=== PATIENT | male | born 1995 | race Caucasian/White ===

== ENCOUNTER → 2020-06-02 11:00 | Outpatient (BNVA) | payer BC, SELFPAY | PROVIDERS: Visit Provider Nurse Practitioner Family | DX: Z11.59 Encounter for screening for other viral diseases (principal); J98.8 Other specified respiratory disorders; B97.89 Other viral agents as the cause of diseases classified elsewhere; Z68.22 Body mass index [BMI] 22.0-22.9, adult; F17.210 Nicotine dependence, cigarettes, uncomplicated | CPT/HCPCS: 87635 ==

== ENCOUNTER → 2020-08-04 10:00 | Outpatient (BNVA) | payer BC, SELFPAY | PROVIDERS: Visit Provider Nurse Practitioner Family | DX: S46.212A Strain of muscle, fascia and tendon of other parts of biceps, left arm, initial encounter (principal); S46.912A Strain of unspecified muscle, fascia and tendon at shoulder and upper arm level, left arm, initial encounter; W19.XXXA Unspecified fall, initial encounter | CPT/HCPCS: 73030 ==

== ENCOUNTER 2020-08-15 15:59 | Outpatient (CLI) | payer OTHER, SELFPAY ==
--- NOTE | 2020-08-15 16:00 | MRR_ITS ---
PROCEDURE INFORMATION: Exam: MR Left Upper Extremity Joint Without Contrast; Shoulder Exam date and time: 08/15/2020 4:56 PM Age: 25 years old Clinical indication: Injury or trauma; Initial encounter; Sprain or strain; Shoulder; Left; Additional info: S46.912a strain of unspecified muscle, fascia and tendon . . . TECHNIQUE: Imaging protocol: MR of the Left upper extremity without contrast. Exam focused on the shoulder. COMPARISON: CR XR shoulder LT min 2V* [id number] 08/04/2020 10:12 AM FINDINGS: Bones and cartilage: Glenohumeral alignment is normal. Articular cartilage is normal. Bone marrow signal intensity is normal. No edema. Type 1 acromion. Joint spaces: No joint effusion. Normal AC joint. Glenoid labrum: The glenoid labrum is normal. Supraspinatus tendon: The supraspinatus tendon is normal. Infraspinatus tendon: The infraspinatus tendon is normal. Subscapularis tendon: The subscapularis tendon is normal. Teres minor tendon: The teres minor tendon is normal. Tendon of biceps brachii: The long head biceps tendon is intact and lies within the intertubercular groove. Glenohumeral ligaments: Unremarkable. Muscles: No muscle atrophy. Soft tissues: Unremarkable. MR/MR shoulder LT wo con* [id number] IMPRESSION: No pathologic findings.
== END 2020-08-15 16:00 | disposition home or self-care (01) ==
LOC: RADSHAW 16:04
PROVIDERS: Visit Provider Nurse Practitioner Family
DX: S46.912A Strain of unspecified muscle, fascia and tendon at shoulder and upper arm level, left arm, initial encounter (principal); X58.XXXA Exposure to other specified factors, initial encounter
CPT/HCPCS: 73221

== ENCOUNTER → 2020-09-23 14:32 | Outpatient (BNVA) | payer OTHER, SELFPAY | PROVIDERS: Visit Provider Nurse Practitioner Family | DX: Z11.59 Encounter for screening for other viral diseases (principal) | CPT/HCPCS: 87635 ==

== ENCOUNTER → 2020-10-15 10:12 | Outpatient (BNVA) | payer BC, SELFPAY | PROVIDERS: Visit Provider Family Medicine | DX: J84.10 Pulmonary fibrosis, unspecified (principal); R05 Cough | CPT/HCPCS: 71046; 87635 ==

== ENCOUNTER → 2021-06-24 11:25 | Outpatient (BNVA) | payer OTHER, SELFPAY | PROVIDERS: Visit Provider Nurse Practitioner Family | DX: K52.9 Noninfective gastroenteritis and colitis, unspecified (principal); Z20.822 Contact with and (suspected) exposure to COVID-19 | CPT/HCPCS: 80053; 80061; 81003; 83036; 84443; 85025; 87635 ==

== ENCOUNTER 2021-07-02 13:54 | Outpatient (CLI) | payer SELFPAY ==
--- NOTE | 2021-07-02 14:01 | CT_ITS ---
WS: [id number] CT ABDOMEN PELVIS TECHNIQUE: Noncontrast CT of the abdomen and pelvis with coronal and sagittal reformatted images. CLINICAL INFORMATION: K40.90 - Unilateral inguinal hernia, without obstruction ... COMPARISON: None. DLP: 717.[address] scans at [facility] use at least one of these dose optimization techniques: automat ed exposure control; mA and/or kV adjustment per patient size (includes targeted exams where dose is matched to clinical indication); or iterative reconstruction. FINDINGS: Fat-containing right inguinal hernia. No entrapped or herniated bowel. Tiny fat-containing umbilical hernia. Lung bases are well aerated. Noncontrast liver is normal. Normal noncontrast gallbladder. Non contrast spleen is normal. Normal adrenal glands. No hydronephrosis in either kidney. Normal caliber abdominal aorta. Urine distended bladder. Normal sigmoid colon. No evidence of small or large bowel obstruction. Cristiana l lumbar spine. CT/CT abdomen pelvis wo con [id number] IMPRESSION: 1. Fat-containing right inguinal hernia. No herniated or incarcerated bowel. 2. Tiny fat-containing umbilical hernia. 3. No other significant findings.
== END 2021-07-02 13:55 | disposition home or self-care (01) ==
LOC: RAD 13:56
PROVIDERS: PCP Nurse Practitioner Family; Visit Provider Family Medicine
DX: K40.90 Unilateral inguinal hernia, without obstruction or gangrene, not specified as recurrent (principal); K42.9 Umbilical hernia without obstruction or gangrene; Z20.822 Contact with and (suspected) exposure to COVID-19
CPT/HCPCS: 74176; 87635

== ENCOUNTER → 2021-07-06 15:22 | Outpatient (BNVA) | payer OTHER, SELFPAY | PROVIDERS: PCP Nurse Practitioner Family; Visit Provider Surgery | DX: K40.90 Unilateral inguinal hernia, without obstruction or gangrene, not specified as recurrent (principal); Z20.822 Contact with and (suspected) exposure to COVID-19 | CPT/HCPCS: 87635 ==

== ENCOUNTER 2021-07-08 11:20 | Day surgery (SDC) | payer OTHER, SELFPAY ==
[2021-07-07 17:10] VITALS: BMI 22.9
[2021-07-08 10:21] VITALS: BP 126/71; PULSE 69; RESP 18; TEMP 36.5; O2SAT 98
[2021-07-08] MEDS: sodium chloride 0.9% 1,000 ML 30 ML IV (10:54)
--- NOTE | 2021-07-08 10:57 | W.PM.OPSFHP ---
Same Day Surgery H&P Indication for Procedure/HPI DATE OF PROCEDURE: July 08, 2021 CHIEF COMPLAINT/INDICATIONFOR SURGICAL PROCEDURE: Right inguinal hernia PREOP DIAGNOSIS: right inguinal hernia PLANNED PROCEDRUE: Operation Date: 07/08/21 11:30 Proposed Procedures p Laparoscopic Inguinal Hernia Repair w/Mesh 22262 K40.90(Not Applicable) - Alverto Melendrez MD This is a 25-year-old male who felt a pop in the right groin 2 weeks ago and subsequently about a week later noticed swelling in the groin. He was seen at our [facility] where the hernia was reduced and a subsequent CT abdomen pelvis the following day showed fat-containing right inguinal hernia. At present he denies any abdominal pain, nausea or vomiting. Denies any constipation or diarrhea. No prior hernia repairs in the past. He states that the hernia protrudes when he coughs and reduces on laying down ROS 10 system review was negative Medications/Allergies* None Home Medications Medication Instructions Recorded Confirmed Type No Known Home Medications 07/07/21 07/07/21 History Allergies/Adverse Reactions Allergy/AdvReac Type Severity Reaction Status Date / Time No Known Allergies Allergy Verified 07/02/21 14:22 Current Medications: Generic Name Dose Route Start Last Admin Trade Name Freq PRN Reason Stop Dose Admin Sodium Chloride 1,000 mls @ 30 mls/hr 07/08/21 10:30 07/08/21 10:54 Sodium Chloride 0.9% IV 07/09/21 10:29 30 mls/hr .Q24H BRITTANIE Administration Pertinent History/Comorbid Conditions* Medical History (Updated 07/01/21 @ 17:23 by David Garcia MD) Biceps muscle strain Cough Dental abscess Exposure to COVID-19 virus Gastroenteritis Left shoulder strain Social History Smoking and tobacco status: current every day smoker Alcohol intake: current 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 [employer] Pertinent Exam Findings oriented x 3 HEENT: Normocephalic Eye: Sclera /conjunctiva normal Respiratory and chest: Bilateral clear breath sounds on auscultation Cardiovascular: Normal S1 and S2 heart sounds Abdomen: Soft to palpation, reducible right inguinal hernia Neurological: Oriented to place person and time Skin: Intact, no lesions appreciated on gross exam Pertinent Data PERTINENT DATA: CT abdomen pelvis showed a fat-containing right inguinal hernia Recommendations Surgery/Procedure today Other Plans: 25-year-old male with symptomatic reducible right inguinal hernia Plan for laparoscopic possible open right inguinal hernia repair with mesh Procedure, risks, benefits and alternatives have been discussed with the patient who wishes to proceed with surgery. 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
--- NOTE | 2021-07-08 11:02 | P.ANESASSM_ITS ---
Pre-Anesthetic Assessment Pre-Anesthetic Assessment: Height/Weight: Height 1.78 m Weight 72.575 kg Temp Pulse Resp BP Pulse Ox 97.7 F 69 18 126/71 98 07/08/21 10:21 07/08/21 10:21 07/08/21 10:21 07/08/21 10:21 07/08/21 10:21 Preop Diagnosis: right inguinal hernia Proposed Procedure: Operation Date: 07/08/21 11:30 Proposed Procedures p Laparoscopic Inguinal Hernia Repair w/Mesh 73388 K40.90(Not Applicable) - Alverto Melendrez MD Familial anesthetic complications: None Was Beta Nely taken within 24 hours: N/A Was Clonidine taken within 24 hours: N/A Last intake: Intake Last Liquid Date 07/07/21 Last Liquid Time 19:00 Last Solid Date 07/07/21 Last Solid Time 19:00 Social: Social History: No alcohol and No tobacco Exam: Pre-Anes Outpt Exam: alert, oriented x 3, clear to auscultation bilaterally and regular rate & rhythm Airway: Cervical ROM: WNL MP: 2 Dentition: Chipped Pulmonary: Pulmonary: Asthma Anesthetic Plan: ASA status: 2 Anesthesia: General Risk of > 500 ml blood loss (7ml/kg in children): No Meds/Allergies Current Medications: Current Medications Generic Name Dose Route Start Last Admin Trade Name Freq PRN Reason Stop Dose Admin Sodium Chloride 1,000 mls @ 30 ml s/hr 07/08/21 10:30 07/08/21 10:54 Sodium Chloride 0.9% IV 07/09/21 10:29 30 mls/hr .Q24H BRITTANIE Administration PFSH Anesthesia PFSH: Medical History (Updated 07/08/21 @ 10:58 by Alverto Melendrez MD) Dental abscess Social History Smoking and tobacco status: current every day smoker Alcohol intake: current 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
--- NOTE | 2021-07-08 11:47 | SUR.PREOP ---
patient being rescheduled do to surgery not approved by work comp yet. patient left ambulatory
--- NOTE | 2021-07-08 12:21 | P.PN_ITS ---
Subjective Subjective: Interval history: Patient has mild groin pain but surgery had to be canceled today since he apparently had a workman's comp claim that has not been approved. Patient had not mentioned this to the office staff and he was assumed to be a self-pay. We will therefore await approval from [employer] before scheduling the surgery. 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
== END 2021-07-08 14:00 | disposition home or self-care (01) ==
PROVIDERS: PCP Family Medicine; Visit Provider Surgery
PROC: (CPT 49650; principal; 2021-07-08 11:20)
DX: K40.90 Unilateral inguinal hernia, without obstruction or gangrene, not specified as recurrent (principal); F17.210 Nicotine dependence, cigarettes, uncomplicated; Z53.9 Procedure and treatment not carried out, unspecified reason
CPT/HCPCS: J7030

== ENCOUNTER → 2021-07-14 15:41 | Outpatient (BNVA) | payer OTHER, SELFPAY | PROVIDERS: Visit Provider Surgery | DX: Z20.822 Contact with and (suspected) exposure to COVID-19 (principal) | CPT/HCPCS: 87635 ==

== ENCOUNTER 2021-07-20 13:48 | Day surgery (SDC) | payer OTHER, SELFPAY ==
[2021-07-16 15:03] VITALS: BMI 22.9
[2021-07-20] VITALS (10 sets, daily range): BP systolic 100–128; BP diastolic 46–73; PULSE 48–70; RESP 15–19; TEMP 36.2–36.6; O2SAT 97–100
[2021-07-20] MEDS: sodium chloride 0.9% 1,000 ML 30 ML IV (14:13)
--- NOTE | 2021-07-20 14:17 | P.ANESUD_ITS ---
Pre-Anesthetic Update Pre-Anesthetic Assessment: Date of Surgery/Procedure: 07/20/21 Preop Remedios gnosis: left inguinal hernia Proposed Procedure: Operation Date: 07/20/21 15:20 Proposed Procedures p Laparoscopic Inguinal Hernia Repair w/Mesh 04070 K40.90(Not Applicable) - Alverto Melendrez MD Any changes to Pre-Anesthetic Assessment?: No Last Intake: Intake Last Liquid Date 07/19/21 Last Liquid Time 20:00 Last Solid Date 07/19/21 Last Solid Time 20:00 Vitals: Temperature 97.1 F L 07/20/21 13:59 Temperature Source Temporal Artery S can 07/20/21 13:59 Pulse Rate 68 07/20/21 13:59 Respiratory Rate 18 07/20/21 13:59 Blood Pressure 104/58 07/20/21 13:59 Blood Pressure Senia n 73 07/20/21 13:59 Pulse Oximetry 99 07/20/21 13:59 Oxygen Delivery Me thod 07/20/21 14:00 Exam: Pre-Anes Outpt Exam: alert, oriented x 3, clear to auscultation bilaterally and regular rate & rhythm Cardiac Studies: No Data to Display
--- NOTE | 2021-07-20 14:33 | W.PM.OPSFHP ---
Same Day Surgery H&P Indication for Procedure/HPI DATE OF PROCEDURE: July 20, 2021 CHIEF COMPLAINT/INDICATIONFOR SURGICAL PROCEDURE: right inguinal hernia repair PREOP DIAGNOSIS: left inguinal hernia PLANNED PROCEDRUE: Operation Date: 07/20/21 15:20 Proposed Procedures p Laparoscopic Inguinal Hernia Repair w/Mesh 95012 K40.90(Not Applicable) - Alverto Melendrez MD Medications/Allergies* Home Medications Medication Instructions Recorded Confirmed Type No Known Home Medications 07/07/21 07/07/21 History Allergies/Adverse Reactions Allergy/AdvReac Type Severity Reaction Status Date / Time No Known Allergies Allergy Verified 07/02/21 14:22 Current Medications: Generic Name Dose Route Start Last Admin Trade Name Freq PRN Reason Stop Dose Admin Sodium Chloride 1,000 mls @ 30 mls/hr 07/20/21 13:30 07/20/21 14:13 Sodium Chloride 0.9% IV 07/21/21 13:29 30 mls/hr .Q24H BRITTANIE Administration Pertinent History/Comorbid Conditions* Medical History (Updated 07/08/21 @ 10:58 by Alverto Melendrez MD) Dental abscess Social History Smoking and tobacco status: current every day smoker Alcohol intake: current 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
--- NOTE | 2021-07-20 16:46 | PM.OP ---
Operative Report Date of procedure: July 20, 2021 Pre-op Diagnosis: Reducible right inguinal hernia Post-op Diagnosis: Reducible direct right inguinal hernia Procedure Done: Laparoscopic total extraperitoneal direct inguinal hernia with Surgimax 3D mesh Pathology: none sent Surgeon: Alverto Melendrez Anesthesia: General Condition: stable Disposition: PACU Procedure: The patient was taken to the operating room. After IV antibiotic was administered, the abdomen was prepped and draped in a sterile manner. Using a 15 blade, a 1.0 cm transverse incision was made infraumbilically on the right side. Subcutaneous tissue was divided using electrocautery and the anterior rectus sheath divided using an 11 blade. The rectus muscle was retracted laterally and the extraperitoneal space identified. A 11 mm port was placed and 15 mm of pneumoperitoneum was created. A 10 mm 30? scope was introduced and the retrorectus space was opened using the camera up to the pubic symphysis and 5 mm ports were placed in the midline, one 2-fingerbreadths above the pubic symphysis and the other midway between these two ports under direct visualization. Blunt dissection was carried out to open up the tissue in the midline and to the pubic symphysis, which was identified. The dissection was then carried laterally where the iliopubic tract was identified. There was no femoral or obturator hernia noted, there was a direct hernia which was easily reduced.The inferior epigastric artery was identified and dissection was carried posterior to it and laterally, the space was opened up to the level of the umbilicus superior to the anterior superior iliac spine. I proceeded to dissect out the spermatic cord and the peritoneal edge was peeled back up to the iliac vein, there was no indirect hernia or lipoma of the cord noted. 16 x 10cm Surgimax 3D mesh was rolled and introduced through the 10 mm port and then rolled laterally and apposed well against the abdominal wall to cover the myopectineal orifice completely. 10 Cc of 0.5% Marcaine was infiltrated into the preperitoneal space. The extraperitoneal space was desufflated under direct visualization to ensure no slippage of hernial sac under the mesh. All ports were removed, the anterior rectus fascia at the infraumbilical port closed using figure of eight 0 Vicryl sutures, subcutaneous tissue approximated using 3-0 Vicryl sutures and skin at all three port sites were closed using running subcuticular 4-0 Monocryl sutures and Dermabond. 10 mL of 0.5% Marcaine was infiltrated at the port sites. The patient was stable throughout the procedure.
--- NOTE | 2021-07-20 16:50 | SUR.PHASEI ---
PT AWAKES TO VOICE DENEIS PAIN AND COLD, VSS IV PATENT ABD SOFT DRESSING TO RT SCROTAL AREA D/I
[2021-07-20] MEDS: fentaNYL 50 mcg/mL INJ 2mL IVP (17:02)
[2021-07-20] MEDS: HYDROcodone-acetaminophen 5-325 mg Tablet 1 TAB PO (17:30)
--- NOTE | 2021-07-20 17:32 | ANE.PACU2 ---
Inpatient post-anesthesia follow up: Airway intact: Yes Vital signs: Temperature 97.2 F Pulse Rate 61 Respiratory Rate 18 Blood Pressure 114/46 Pulse Oximetry 100 Oxygen Delivery Me thod Room Air Oxygen Flow Rate 2 Fraction of Inspir ed Oxygen Hydration adequate: Yes Nausea and vomiting: No Pain level: 2 Mental status: Baseline
== END 2021-07-20 18:17 | disposition home or self-care (01) ==
PROVIDERS: Visit Provider Surgery
PROC: (CPT 49650; principal; 2021-07-20 15:20)
DX: K40.90 Unilateral inguinal hernia, without obstruction or gangrene, not specified as recurrent (principal); F17.210 Nicotine dependence, cigarettes, uncomplicated
CPT/HCPCS: 49505; 96365; C1781; J0690; J1100; J2405; J2704; J2710; J3010; J3490; J7030